=== PATIENT | male | born 1960 | race Hispanic/Latino ===

== ENCOUNTER 2022-02-16 10:41 | Outpatient (CLI) | payer SELFPAY ==
[2022-02-16 21:44] LABS: SARS-CoV-2 PCR by NAA Not Detected (NotDetected)
== END 2022-02-16 10:42 | disposition home or self-care (01) ==
LOC: CSHLAB 10:41
PROVIDERS: ATTEND Internal Medicine Gastroenterology
DX: Z20.822 Contact with and (suspected) exposure to COVID-19 (principal); R10.9 Unspecified abdominal pain; Z12.11 Encounter for screening for malignant neoplasm of colon
CPT/HCPCS: U0003; U0005

== ENCOUNTER 2022-02-21 07:14 | Day surgery (SDC) | payer OTHER ==
[2022-02-17 11:51] VITALS: BMI 26.1
[2022-02-21] MEDS ORDERED: Lidocaine 1% MPF 2 ML VIAL ONE (08:46)
[2022-02-21] MEDS ORDERED: PROPOFOL 40 ML ONE (09:08)
[2022-02-21] MEDS ORDERED: Lidocaine 1% PF 5 ML VIAL ONE (09:08)
== END 2022-02-21 11:35 | disposition home or self-care (01) ==
LOC: CSHSDC 07:14
PROVIDERS: ATTEND Internal Medicine Gastroenterology
PROC: 0DB58ZZ Excision of Esophagus, Via Natural or Artificial Opening Endoscopic (ICD-10-PCS; principal; 2022-02-21)
PROC: 0DBL8ZZ Excision of Transverse Colon, Via Natural or Artificial Opening Endoscopic (ICD-10-PCS; principal; 2022-02-21)
DX: Z12.11 Encounter for screening for malignant neoplasm of colon (principal); K21.00 Gastro-esophageal reflux disease with esophagitis, without bleeding; D12.3 Benign neoplasm of transverse colon; K57.30 Diverticulosis of large intestine without perforation or abscess without bleeding; E11.9 Type 2 diabetes mellitus without complications; F41.9 Anxiety disorder, unspecified; G47.30 Sleep apnea, unspecified; E78.5 Hyperlipidemia, unspecified
CPT/HCPCS: 36416; 88305; J2704